=== PATIENT | female | born 1990 | race African-American/Black ===

== ENCOUNTER 2018-10-30 20:38 | Emergency (ER) | payer OTHER, SELFPAY ==
[2018-10-30] MEDS ORDERED: PROMETHAZINE 25 MG TABLET ONE (23:08)
[2018-10-30] MEDS ORDERED: KETOROLAC 30 MG/ML INJ ONE (23:09)
[2018-10-31 00:27] LABS: Urine Blood TRACE (NEG); Urine Glucose NEGATIVE (NEG); Urine Protein NEGATIVE (NEG); Urine Specific Gravity 1.015 (1.005-1.030); Urine pH 5.5 (5.0-7.0)
--- NOTE | 2018-10-31 00:34 | ER ---
Nurse's Notes [facility] Name: Eugene Desir Age: 27 yrs Sex: Female : 1990 Arrival Date: 10/30/2018 Time: 20:41 Bed 13 Private MD: Elvira Simon Diagnosis: Headache Presentation: 10/30 21:19 Presenting complaint: Patient states: Migraine with nausea for 2 days. Transition of care: patient was not received from another setting of care. Onset of symptoms was October 28, 2018. Risk Assessment: Do you want to hurt yourself or someone else? Patient reports no desire to harm self or others. Initial Sepsis Screen: Does the patient meet any 2 criteria? No. Patient's initial sepsis screen is negative. Does the patient have a suspected source of infection? No. Patient's initial sepsis screen is negative. Care prior to arrival: None. 21:19 Method Of Arrival: Ambulatory 21:19 Acuity: JULIO 4 Triage Assessment: 21:21 Headache History: The patient has had previous headaches and this one is similar to previous episodes. General: Appears in no apparent distress. comfortable, Behavior is calm, cooperative, appropriate for age. Pain: Complains of pain in face and scalp Pain. 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 Full function Gait is steady, Speech is normal, Facial symmetry appears normal, Reports headache. Respiratory: Airway is patent Respiratory effort is even, unlabored, Respiratory pattern is regular, symmetrical. GI: Reports nausea. Derm: Skin is intact, is healthy with good turgor, Skin is pink, warm \T\ dry. normal. 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 - Social history:: Smoking status: Patient/guardian denies using tobacco. - Ebola Screening: : Patient negative for fever greater than or equal to 101.5 degrees Fahrenheit, and additional compatible Ebola Virus Disease symptoms Patient denies exposure to infectious person Patient denies travel to an Ebola-affected area in the 21 days before illness onset No symptoms or risks identified at this time. Screenin:40 Abuse screen: Denies threats or abuse. Nutritional screening: No deficits noted. jb4 Tuberculosis screening: No symptoms or risk factors identified. Fall Risk None identified. Assessment: 22:40 General: Appears in no apparent distress. comfortable, Behavior is calm, cooperative. jb4 Pain: Complains of pain in headache. Pain does not radiate. Pain currently is 10 out of 10 on a pain scale. Quality of pain is described as throbbing. Neuro: Level of Consciousness is awake, alert, Oriented to person, place, time, situation. Cardiovascular: Patient's skin is warm and dry. Respiratory: Airway is patent Respiratory effort is even, unlabored, Respiratory pattern is regular, symmetrical. GI: Abdomen is non-distended, obese, Bowel sounds present X 4 quads. Abd is soft and non tender X 4 quads. : No signs and/or symptoms were reported regarding the genitourinary system. Urine is cloudy. EENT: No deficits noted. Derm: Skin is intact, Skin is pink, warm \T\ dry. Musculoskeletal: Circulation, motion, and sensation intact. 23:40 Reassessment: Patient appears in no apparent distress at this time. Patient and/or jb4 family updated on plan of care and expected duration. Pain level reassessed. Patient is alert, oriented x 3, equal unlabored respirations, skin warm/dry/pink. 10/31 00:57 Reassessment: Patient appears in no apparent distress at this time. Patient and/or jb4 family updated on plan of care and expected duration. Pain level reassessed. Patient is alert, oriented x 3, equal unlabored respirations, skin warm/dry/pink. Discussed D/c, f/u with pt, denies questions or concerns. Vital Signs: 10/30 21:21 BP 140 / 90; Pulse 86; Resp 20; Temp 97.9; Pulse Ox 100% on R/A; Weight 99.79 kg; aj Height 5 ft. 5 in. (165.10 cm); 23:30 BP 123 / 88; Pulse 77; Resp 18; Pulse Ox 99% on R/A; jb4 10/31 00:57 BP 129 / 90; Pulse 64; Resp 16; Pulse Ox 100% on R/A; jb4 10/30 21:21 Body Mass Index 36.61 (99.79 kg, 165.10 cm) ED Course: 10/30 20:41 Patient arrived in ED. es 20:41 Elvira Simon MD is Private Physician. es 21:20 Triage completed. aj 21:21 Arm band placed on left wrist. Patient placed in waiting room. aj 22:36 Gilberto Prado MD is Attending Physician. kdr 22:36 Claribel De La Torre RN is Primary Nurse. ca1 22:40 Patient has correct armband on for positive identification. Bed in low position. Call jb4 light in reach. Side rails up X 1. Pulse ox on. NIBP on. 10/31 00:33 Elvira Simon MD is Referral Physician. kdr 00:57 No provider procedures requiring assistance completed. Patient did not have IV access jb4 during this emergency room visit. Administered Medications: 10/30 23:10 Drug: TORadol 60 mg Route: IM; Site: right gluteus; jb4 10/31 00:59 Follow up: Response: No adverse reaction; Pain is decreased jb4 10/30 23:10 Drug: Phenergan 25 mg Route: PO; jb4 10/31 00:59 Follow up: Response: No adverse reaction; Nausea is decreased jb4 Outcome: 00:33 Discharge ordered by . kdr 00:57 Discharged to home ambulatory. jb4 00:57 Condition: stable 00:57 Discharge instructions given to patient, Instructed on discharge instructions, follow up and referral plans. Demonstrated understanding of instructions, follow-up care. 00:59 Patient left the ED. jb4 Signatures: Karly Segundo, RN RN Gilberto Mejia MD MD kdr Salyer, Edna es Bryson, James, RN RN jb4 Claribel De La Torre RN RN ca1
--- NOTE | 2018-10-31 00:34 | EDPHYS ---
Physician Documentation [facility] Name: Eugene Desir Age: 27 yrs Sex: Female : 1990 Arrival Date: 10/30/2018 Time: 20:41 Bed 13 Private MD: Elvira Simon ED Physician Gilberto Prado HPI: 10/31 05:22 This 27 yrs old Black Female presents to ER via Ambulatory with complaints of Headache, kdr Nausea. 05:22 The patient complains of pain to the top of head. The patient describes the headache as kdr aching, constant, a pressure, unrelenting. Onset: The symptoms/episode began/occurred gradually, 2 day(s) ago. Associated signs and symptoms: Pertinent positives:. Severity of symptoms: At its worst the pain was mild, in the emergency department the pain is unchanged. Headache History: The patient has had previous headaches and this one is similar to previous episodes. The symptoms are alleviated by nothing. Usually will take Topamax but does not have any the symptoms are aggravated by nothing. The patient has experienced similar episodes in the past, multiple times. The patient has not recently seen a physician. 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 - Social history:: Smoking status: Patient/guardian denies using tobacco. - Ebola Screening: : Patient negative for fever greater than or equal to 101.5 degrees Fahrenheit, and additional compatible Ebola Virus Disease symptoms Patient denies exposure to infectious person Patient denies travel to an Ebola-affected area in the 21 days before illness onset No symptoms or risks identified at this time. ROS: 10/31 05:22 Constitutional: Negative for fever, chills, and weight loss, Eyes: Negative for injury, kdr pain, redness, and discharge, ENT: Negative for injury, pain, and discharge, Neck: Negative for injury, pain, and swelling, Cardiovascular: Negative for chest pain, palpitations, and edema, Respiratory: Negative for shortness of breath, cough, wheezing, and pleuritic chest pain, Abdomen/GI: Negative for abdominal pain, nausea, vomiting, diarrhea, and constipation, Back: Negative for injury and pain, : Negative for injury, bleeding, discharge, and swelling, MS/Extremity: Negative for injury and deformity, Skin: Negative for injury, rash, and discoloration, Psych: Negative for depression, anxiety, suicide ideation, homicidal ideation, and hallucinations, Allergy/Immunology: Negative for hives, rash, and allergies, Endocrine: Negative for neck swelling, polydipsia, polyuria, polyphagia, and marked weight changes, Hematologic/Lymphatic: Negative for swollen nodes, abnormal bleeding, and unusual bruising. Neuro: Positive for headache, Negative for altered mental status, dizziness, gait disturbance, loss of consciousness, seizure activity, speech changes, syncope, near syncope, tingling, tinnitus, tremor, visual changes, weakness. Exam: 05:22 Constitutional: This is a well developed, well nourished patient who is awake, alert, kdr and in no acute distress. Head/Face: Normocephalic, atraumatic. Eyes: Pupils equal round and reactive to light, extra-ocular motions intact. Lids and lashes normal. Conjunctiva and sclera are non-icteric and not injected. Cornea within normal limits. Periorbital areas with no swelling, redness, or edema. Neck: Trachea midline, no thyromegaly or masses palpated, and no cervical lymphadenopathy. Supple, full range of motion without nuchal rigidity, or vertebral point tenderness. No Meningismus. Chest/axilla: Normal chest wall appearance and motion. Nontender with no deformity. No lesions are appreciated. Cardiovascular: Regular rate and rhythm with a normal S1 and S2. No gallops, murmurs, or rubs. Normal PMI, no JVD. No pulse deficits. Respiratory: Lungs have equal breath sounds bilaterally, clear to auscultation and percussion. No rales, rhonchi or wheezes noted. No increased work of breathing, no retractions or nasal flaring. Abdomen/GI: Soft, non-tender, with normal bowel sounds. No distension or tympany. No guarding or rebound. No evidence of tenderness throughout. Back: No spinal tenderness. No costovertebral tenderness. Full range of motion. Skin: Warm, dry with normal turgor. Normal color with no rashes, no lesions, and no evidence of cellulitis. MS/ Extremity: Pulses equal, no cyanosis. Neurovascular intact. Full, normal range of motion. Neuro: Awake and alert, GCS 15, oriented to person, place, time, and situation. Cranial nerves II-XII grossly intact. Motor strength 5/5 in all extremities. Sensory grossly intact. Cerebellar exam normal. Normal gait. Psych: Awake, alert, with orientation to person, place and time. Behavior, mood, and affect are within normal limits. Vital Signs: 10/30 21:21 BP 140 / 90; Pulse 86; Resp 20; Temp 97.9; Pulse Ox 100% on R/A; Weight 99.79 kg; aj Height 5 ft. 5 in. (165.10 cm); 23:30 BP 123 / 88; Pulse 77; Resp 18; Pulse Ox 99% on R/A; jb4 10/31 00:57 BP 129 / 90; Pulse 64; Resp 16; Pulse Ox 100% on R/A; jb4 10/30 21:21 Body Mass Index 36.61 (99.79 kg, 165.10 cm) MDM: 00:33 Patient medically screened. kdr 05:22 Data reviewed: vital signs, nurses notes. Counseling: I had a detailed discussion with kdr the patient and/or guardian regarding: the historical points, exam findings, and any diagnostic results supporting the discharge/admit diagnosis, the need for outpatient follow up. ED course: The patient was much improved with the interventions given. 10/30 23:20 Order name: Urine Dipstick--Ancillary (enter results) [facility] 10/30 23:20 Order name: Urine --Ancillary (enter results) [facility] Administered Medications: 10/30 23:10 Drug: TORadol 60 mg Route: IM; Site: right gluteus; 4 10/31 00:59 Follow up: Response: No adverse reaction; Pain is decreased [facility] 10/30 23:10 Drug: Phenergan 25 mg Route: PO; 4 10/31 00:59 Follow up: Response: No adverse reaction; Nausea is decreased [facility] Disposition: 10/31/18 00:33 Discharged to Home. Impression: Headache. - Condition is Stable. - Discharge Instructions: General Headache Without Cause, Migraine Headache, [id number]. - Medication Reconciliation Form, Thank You Letter form. - Follow up: Elvira Simon MD; When: 2 - 3 days; Reason: If symptoms return, Further diagnostic work-up, Recheck today's complaints, Continuance of care, Re-evaluation by your physician. - Problem is an acute exacerbation. - Symptoms have improved. Signatures: Dispatcher [employer] EDKarly Beckett RN Gilberto Bahena MD MD [facility] Contreras Forte RN RN jb4 Corrections: (The following items were deleted from the chart) 00:59 00:33 10/31/2018 00:33 Discharged to Home. Impression: Headache. Condition is Stable. jb4 Forms are Medication Reconciliation Form, Thank You Letter, Antibiotic Education, Prescription Opioid Use. Follow up: Elvira Simon; When: 2 - 3 days; Reason: If symptoms return, Further diagnostic work-up, Recheck today's complaints, Continuance of care, Re-evaluation by your physician. Problem is an acute exacerbation. Symptoms have improved. kdr
== END 2018-10-31 00:59 | disposition home or self-care (01) ==
LOC: ER 20:38
DX: R51 Headache (principal); I10 Essential (primary) hypertension; Z79.899 Other long term (current) drug therapy
CPT/HCPCS: 81003; 81025; 96372; 99283